=== PATIENT | female | born 1975 | race Caucasian/White ===

== ENCOUNTER 2017-04-04 09:47 | Emergency (ER) | payer OTHER ==
[2017-04-04 09:59] VITALS: BP 137/68; PULSE 71; TEMP 97.9; BMI 41.1
--- NOTE | 2017-04-04 12:16 | PDOC ---
History of Present Illness - General Chief Complaint: Pain Stated Complaint: RT LEG PAIN Time Seen by Provider: 04/04/17 11:20 History Source: Patient Exam Limitations: No Limitations - History of Present Illness Initial Comments: 04/04/17 12:25 My Chief Complaint: rt. groin/thigh pain since 03/13/17 History of Present Illness: Pt. is a 42 y/o with h/o lumbar herniation with intermittent rt. radiculopathy here today complaining of right groin and anterior proximal thigh pain since 03/13/2017. She was pulling a clothing rack at her job onto an elevator, when it got stuck she pulled harder and felt a pain in her right groin and anterior thigh and right knee. She has been taking Advil for relief of pain however he persists. Patient reports that she has difficulty raising her right leg at hip anteriorly. Patient also finds it difficult to walk due to pain. Also reports having pain in her right buttocks that radiates down her right leg to her foot intermittently since this occurred. Patient reports the pain currently as an 8 out of 10. She denies any numbness of right leg or any saddle anesthesia or incontinency. 04/04/17 12:28 Occurred: reports: other (03/13/17) Severity: reports: moderate Pain Location: reports: lower extremity (rt groin, anterior thigh, rt. buttock radiates to rt. foot, minimal pain rt. knee) Method of Injury: Yes: other (pulled a clothing rack unto an elevator at work on 03/13/17 felt a pull in rt. groin and rt thigh) Modifying Factors: improves with: immobilization Loss of Consciousness: no loss of consciousness Associated Symptoms (Fall): trouble walking (intermittently due to pain in rt. groin anterior thigh) Past History - Past Medical History Allergies/Adverse Reactions: Allergies Allergy/AdvReac Type Severity Reaction Status Date / Time No Known Allergies Allergy Verified 04/04/17 09:56 Home Medications: Ambulatory Orders Naproxen [Naprosyn -] 500 mg PO BID PRN #14 tablet 04/04/17 Other medical history: rt. lumbar herniation with radiculopathy rt leg - Immunization History Immunization Up to Date: Yes - Psycho/Social/Smoking Cessation Hx Anxiety: No Suicidal Ideation: No Smoking History: Never smoked Have you smoked in the past 12 months: No Information on smoking cessation initiated: No Hx Alcohol Use: No Drug/Substance Use Hx: No Substance Use Type: None Review of Systems - Review of Systems Able to Perform ROS?: Yes Constitutional: No: Symptoms Reported HEENTM: No: Symptoms Reported Respiratory: No: Symptoms reported Cardiac (ROS): No: Symptoms Reported ABD/GI: No: Symptoms Reported : No: Symptoms Reported Musculoskeletal: Yes: Joint Pain (minimal pain rt. knee), Muscle Pain (rt. anterior proximal thigh/ groin ), Muscle Weakness (rt thigh), Other (rt. buttock pain radiates to rt. foot denies rt. sided back pain ) Integumentary: No: Symptoms Reported Neurological: No: Symptoms reported *Physical Exam - Vital Signs Last Vital Signs Temp Pulse Resp BP Pulse Ox 97.9 F 71 18 137/68 100 04/04/17 09:56 04/04/17 09:56 04/04/17 09:56 04/04/17 09:56 04/04/17 09:56 - Physical Exam General Appearance: Yes: Appropriately Dressed Respiratory/Chest: positive: Lungs Clear, Normal Breath Sounds. negative: Chest Tender, Respiratory Distress Cardiovascular: positive: Regular Rhythm, Regular Rate, S1, S2 Vascular Pulses: Dorsalis-Pedis (R): 4+ Comments:: 04/04/17 12:16 femoral pulse 4 + rt. Musculoskeletal: positive: Normal Inspection. negative: CVA Tenderness, CVA Tenderness (R), CVA Tenderness (L), Decreased Range of Motion, Muscle Spasm, Vertebral Tenderness Extremity: positive: Normal Capillary Refill, Normal Inspection, Tender ( rt.anterior proximal thigh, rt. groin tenderness). negative: Normal Range of Motion (decreased range of motion rt.thigh with flexion anteriorly, full range of motion) Integumentary: positive: Normal Color Neurologic: positive: Alert, Normal Response, Respond to painful stimul, Responsive. negative: Motor Strength 5/5 (motor/strength rt. leg 4/5), Sensory Deficit (rt. leg ) Medical Decision Making - Medical Decision Making 04/04/17 12:25 04/04/17 12:31 Pt. is a 42 y/o with h/o lumbar herniation with intermittent rt. radiculopathy here today complaining of right groin and anterior proximal thigh pain since . She was pulling a clothing rack at her job onto an elevator, when it got stuck she pulled harder and felt a pain in her right groin and anterior thigh and right knee. She has been taking Advil for relief of pain however he persists. Patient reports that she has difficulty raising her right leg at hip anteriorly. Patient also finds it difficult to walk due to pain. Also reports having pain in her right buttocks that radiates down her right leg to her foot intermittently since this occurred. Patient reports the pain currently as an 8 out of 10. She denies any numbness of right leg or any saddle anesthesia or incontinency. rt groin/thigh strain rt. buttock pain with radiculopathy rt. leg PLAN: urine hcg negative toradol 60 mg IM now follow up orthopedist naprosyn 500 mg bid prn pain # 14 tabs 04/04/17 22:46 *DC/Admit/Observation/Transfer Diagnosis at time of Disposition: Strain of muscle of right groin region, Back pain with right-sided radiculopathy Strain of right inguinal muscle Qualifiers: Encounter type: initial encounter Qualified Code(s): S39.013A - Strain of muscle, fascia and tendon of pelvis, initial encounter - Discharge Dispostion Disposition: HOME Condition at time of disposition: Stable - Prescriptions Prescriptions: Naproxen [Naprosyn -] 500 mg PO BID PRN #14 tablet PRN Reason: Pain - Referrals Referrals: STAFF,NOT ON [Primary Care Provider] - Juan Lane MD [Staff Physician] - - Patient Instructions Additional Instructions: Follow Up with orthopedist as soon as possible for further evaluation Return to emergency room if symptoms worsen Avoid strenuous activities or exercise Patient voiced understanding of discharge instructions and all questions were answered - Post Discharge Activity Work/School Note: Back to Work
[2017-04-04] MEDS ORDERED: KETOROLAC TROMETHAMINE 60 MG/2 ML VIAL IM ONE ×2 (12:27→12:40)
[2017-04-04] MEDS ORDERED: KETOROLAC TROMETHAMINE 60 MG/2 ML VIAL ONE (12:28)
== END 2017-04-04 12:41 | disposition home or self-care (01) ==
LOC: JERFT 09:47
PROC: 3E0233Z Introduction of Anti-inflammatory into Muscle, Percutaneous Approach (ICD-10-PCS; principal; 2017-04-04)
DX: S39.011A Strain of muscle, fascia and tendon of abdomen, initial encounter (principal); M54.16 Radiculopathy, lumbar region; X58.XXXA Exposure to other specified factors, initial encounter; Y93.89 Activity, other specified
CPT/HCPCS: 84703; 99281-25

== ENCOUNTER 2018-11-17 12:11 | Emergency (ER) | payer OTHER ==
[2018-11-17 12:17] VITALS: BP 122/74; PULSE 107; TEMP 99.7; BMI 46.4
[2018-11-17] MEDS ORDERED: ALBUTEROL SO4 2.5/IPRATROPIUM 0.5 INH SOL 3 ML VIAL.NEB. NEB ONE ×2 (13:15→13:20)
[2018-11-17] MEDS ORDERED: IBUPROFEN 600 MG TABLET (FP) PO ONE ×2 (13:15→13:20)
--- NOTE | 2018-11-17 13:21 | PDOC ---
History of Present Illness - General Chief Complaint: Cold Symptoms Stated Complaint: FLU LIKE SYMPTOMS Time Seen by Provider: 11/17/18 13:06 History Source: Patient Exam Limitations: No Limitations - History of Present Illness Initial Comments: 11/17/18 13:17 Yesterday had onset of chills, fevers, headache and scalp pain, congested ears, moist nonproductive cough, and runny nose. Did not take temperature but felt she had a high fever. No one else at home is sick Severity: reports: mild, moderate Modifying Factors: improves with: coughing Associated Symptoms: reports: earache, facial pain, fever/chills, headache, nasal congestion, nasal drainage, wheezing Past History - Travel Traveled outside of the country in the last 30 days: No Close contact w/someone who was outside of country & ill: No - Past Medical History Allergies/Adverse Reactions: Allergies Allergy/AdvReac Type Severity Reaction Status Date / Time No Known Allergies Allergy Verified 11/17/18 12:14 Home Medications: Ambulatory Orders Albuterol Sulfate Inhaler - [Ventolin HFA Inhaler -] 1 - 2 inh PO Q4H #1 inhaler 11/17/18 Oseltamivir Phosphate [Tamiflu -] 75 mg PO BID #10 capsule 11/17/18 COPD: No - Immunization History Immunization Up to Date: Yes - Suicide/Smoking/Psychosocial Hx Smoking History: Never smoked Have you smoked in the past 12 months: No Hx Alcohol Use: No Drug/Substance Use Hx: No Substance Use Type: None Review of Systems - Review of Systems Able to Perform ROS?: Yes Is the patient limited Maori proficient: Yes Constitutional: Yes: Symptoms Reported, See HPI, Chills, Fever, Loss of Appetite , Malaise HEENTM: Yes: Symptoms Reported, See HPI, Nose Congestion, Throat Pain Respiratory: Yes: Symptoms reported, See HPI, Cough, Wheezing ABD/GI: No: Symptoms Reported : No: Symptoms Reported Musculoskeletal: Yes: Symptoms Reported, See HPI Integumentary: No: Symptoms Reported All Other Systems: Reviewed and Negative *Physical Exam - Vital Signs Last Vital Signs Temp Pulse Resp BP Pulse Ox 99.7 F H 107 H 20 122/74 97 11/17/18 12:15 11/17/18 12:15 11/17/18 12:15 11/17/18 12:15 11/17/18 12:15 - Physical Exam Comments: 11/17/18 13:19 Tuesday GENERAL: is awake, alert, and appropriately interactive.] EYES: [The pupils are equal, round, and reactive to light, with clear, conjunctiva.but glassy] NOSE: [The nose with clear drainage EARS: [The ear canals and tympanic membranes are congested but landmarks easily visualed ] THROAT: [The oropharynx is clear with erythema, no exudates. The mucous membranes are moist.] NECK: [The neck is supple with mildly tender adenopathy, no menigemous] CHEST: [The lungs are coarse but clear without crackles, or wheezes.] HEART: [Heart is regular rhythm, with normal S1 and S2, no murmurs.] ABDOMEN: [The abdomen is soft and nontender with normal bowel sounds. There is no organomegaly and no mass. There is no guarding or rebound.] EXTREMITIES: [Extremities are normal.] NEURO: [Behavior is normal for age.cranky but easily,m Tone is normal.] SKIN: [Skin is unremarkable without rash or swelling. There is no bruising, and there are no other signs of injury.] General Appearance: Yes: Appropriately Dressed HEENT: positive: TMs Normal Moderate Sedation - Procedure Monitoring Vital Signs: Procedure Monitoring Vital Signs Temperature 99.7 F H 11/17/18 12:15 Pulse Rate 107 H 11/17/18 12:15 Respiratory Rate 20 11/17/18 12:15 Blood Pressure 122/74 11/17/18 12:15 O2 Sat by Pulse Oximetry (%) 97 11/17/18 12:15 Progress Note - Progress Note Progress Note: Influenza testing negative however patient has clinical symptoms of an influenzal type and falls within timeframe of Tamiflu for relief of symptoms therefore will treat and considered continue albuterol nebulizers. Follow-up with PMD as needed Medical Decision Making - Medical Decision Making 11/17/18 13:20 Medicated with ibuprofen 600 mg, DuoNeb provided *DC/Admit/Observation/Transfer Diagnosis at time of Disposition: Influenzal acute upper respiratory infection - Discharge Dispostion Disposition: HOME Condition at time of disposition: Stable Decision to Admit order: No - Prescriptions Prescriptions: Albuterol Sulfate Inhaler - [Ventolin HFA Inhaler -] 1 - 2 inh PO Q4H #1 inhaler Oseltamivir Phosphate [Tamiflu -] 75 mg PO BID #10 capsule - Referrals Referrals: Duarte Hui MD [Primary Care Provider] - - Patient Instructions Printed Discharge Instructions: DI for Viral Upper Respiratory Infection -- Adult Additional Instructions: Rest, drink lots of fluids: Teas, water, soups, Pedialyte Saltwater gargles Steamy showers/seem to face break up mucus Old-fashioned treatments help! Avoid contact with others until fevers and cough resolved as this is very contagious Lots of handwashing and good hygiene Continue [id number] medications for symptomatic relief Tylenol or Motrin for fever and pain Take all of Tamiflu as directed: 1 tab every 12 hours for 5 days Followup with private physician in one to 2 days as needed or if worsening Return to emergency department for worsened symptoms, fevers, dehydration Influenza takes between 5 and 7 days for resolution To not participate in any activity, work, or school until fevers and cough are gone for at least one day - Post Discharge Activity Forms/Work/School Notes: Back to Work
== END 2018-11-17 14:26 | disposition home or self-care (01) ==
LOC: JERFT 12:11
PROC: 3E0F7GC Introduction of Other Therapeutic Substance into Respiratory Tract, Via Natural or Artificial Opening (ICD-10-PCS; principal; 2018-11-17)
DX: J11.1 Influenza due to unidentified influenza virus with other respiratory manifestations (principal)
CPT/HCPCS: 87804; 99281-25

== ENCOUNTER 2022-11-01 16:55 | Emergency (ER) | payer OTHER ==
[2022-11-01 17:16] VITALS: BP 119/77; PULSE 77; RESP 18; TEMP 98.1; BMI 44.2
[2022-11-01] MEDS ORDERED: SODIUM CHLORIDE 0.9% 500 ML INFUS.BAG IV ONE (17:40)
[2022-11-01 19:34] LABS: BASO % 0.7 % (0-2.0); EOS % 0.9 % (0-4.5); HEMATOCRIT 39.4 % (32.4-45.2); HEMOGLOBIN 12.9 GM/dL (10.7-15.3); LYMPH % 34.3 % (8-40); MCH 28.5 pg (25.7-33.7); MCHC 32.9 g/dl (32.0-36.0); MEAN CELL VOLUME 86.6 fl (80-96); MONO % 6.8 % (3.8-10.2); NEUT % 57.3 % (42.8-82.8); PLATELET COUNT 260 10^3/uL (134-434); RBC 4.55 M/mm3 (3.60-5.2); RDW 13.5 % (11.6-15.6); WHITE BLOOD COUNT 7.8 K/mm3 (4.0-10.0)
[2022-11-01 19:37] LABS: EPI CELLS 3 /uL (0-25.1); HYALINE CASTS 0 /uL (0-3.1); PH,URINE 5.5 (5.0-8.0); URINE APPEARANCE CLEAR; URINE BACTERIA 162 /uL (0-1359); URINE BILIRUBIN NEGATIVE (NEGATIVE); URINE COLOR YELLOW; URINE GLUCOSE (UA) 3+ (NEGATIVE); URINE KETONE NEGATIVE (NEGATIVE); URINE LEUK ESTERASE NEGATIVE (NEGATIVE); URINE NITRITE NEGATIVE (NEGATIVE); URINE PROTEIN NEGATIVE (NEGATIVE); URINE RBC 31 /uL (0-23.9); URINE UROBILINOGEN 0.2 mg/dL (0.2-1.0); URINE WBC 15 /uL (0-25.8)
[2022-11-01 19:58] LABS: CHLORIDE 97 mmol/L (98-107); SODIUM 136 mmol/L (136-145)
[2022-11-01 20:00] LABS: CALCIUM 9.7 mg/dL (8.5-10.1)
[2022-11-01 20:01] LABS: ALBUMIN 3.6 g/dl (3.4-5.0); ANION GAP 12 MMOL/L (8-16); BLOOD UREA NITROGEN 14.6 mg/dL (7-18); CO2 26 mmol/L (21-32); MAGNESIUM 1.8 mg/dL (1.8-2.4)
[2022-11-01 20:04] LABS: CREATININE 1.2 mg/dL (0.55-1.3); SGOT/AST 32 U/L (15-37); SGPT/ALT 38 U/L (13-61)
[2022-11-01 20:06] LABS: BILIRUBIN,TOTAL 0.4 mg/dL (0.2-1)
[2022-11-01 20:07] LABS: ALK PHOS 109 U/L (45-117)
[2022-11-01 20:30] LABS: VENOUS BASE EXCESS 0.8 mmol/L (-2-2); VENOUS O2 SATURATION 76.3 % (70-80); VENOUS PCO2 47.6 mmHg (38-52); VENOUS PH 7.367 (7.310-7.410)
[2022-11-01 20:35] LABS: GLUCOSE,RANDOM 451 mg/dL (74-106)
== END 2022-11-01 21:32 | disposition home or self-care (01) ==
LOC: JER 16:55
DX: E11.65 Type 2 diabetes mellitus with hyperglycemia (principal)
CPT/HCPCS: 36415; 80053; 81003; 82010; 82803; 82962; 83690; 83735; 84443; 85025; 99284-25

== ENCOUNTER → 2024-03-21 | Day surgery (SDC) | payer OTHER | END | disposition home or self-care (01) | LOC: JRADIR 10:04 | PROVIDERS: ATTEND Internal Medicine Endocrinology, Diabetes & Metabolism | PROC: 0G9H3ZX Drainage of Right Thyroid Gland Lobe, Percutaneous Approach, Diagnostic (ICD-10-PCS; principal; 2024-03-21) | DX: E04.1 Nontoxic single thyroid nodule (principal) | CPT/HCPCS: 10005; 76942; 88173; 88305-TC ==